=== PATIENT | female | born 1985 | race Caucasian/White ===

== ENCOUNTER 2017-02-27 19:59 | Emergency (ER) | payer OTHER, SELFPAY ==
[2017-02-27] MEDS ORDERED: TYLENOL 325 MG PO ONE (20:29)
[2017-02-27] MEDS ORDERED: TYLENOL 325 MG ONE (20:34)
--- NOTE | 2017-02-27 20:50 | ERPHSYRPT ---
- History of Present Illness Time Seen by Provider: 02/27/17 20:25 Source: patient, family (boyfriend) Patient Subjective Stated Complaint: Pt sts sore throat, body aches, fever, congestion since Monday. Sts has had tonsils out. Sts bad breath. Sts not taken OTC medications in last 6 hours. Pt sts hurts to swallow, does not want to swallow spit. Triage Nursing Assessment: Pt alert, oriented, answers all questions appropriately. Skin p/w/d, resps non-labored. Pt ambulatory to tx room, steady gait noted. Throat appears red. Halitosis noted. Lungs CTA bilat. ABD SNT x 4 quadrants. Muffled voice noted Physician History: CC: sore throat Hx: 31 y/o patient with sore throat for the past 3-4 days. Mild rhinorrhea. No cough. No fever or chills. No rash. She is late on menses but took negative home preg tests. No abd pain. No vomiting. No headache. Symptoms moderate. Severity: moderate Allergies/Adverse Reactions: cetirizine HCl [From Zyrtec] Allergy (Verified 02/27/17 20:23) Swelling of Tongue and Lips montelukast sodium [From Singulair] Allergy (Verified 02/27/17 20:23) Swelling of Tongue and Lips strawberry Allergy (Verified 02/27/17 20:23) Hx Tetanus, Diphtheria Vaccination/Date Given: Yes Hx Influenza Vaccination/Date Given: No Hx Pneumococcal Vaccination/Date Given: No Immunizations Up to Date: Yes - Review of Systems Constitutional: Malaise, No Fever, No Chills Eyes: No Symptoms Ears, Nose, & Throat: Nose Congestion, Throat Pain Respiratory: No Cough Abdominal/Gastrointestinal: No Vomiting, No Diarrhea Skin: No Rash - Past Medical History Pertinent Past Medical History: Yes Neurological History: No Pertinent History ENT History: Other Cardiac History: Arrhythmia Respiratory History: No Pertinent History Endocrine Medical History: No Pertinent History Musculoskeletal History: No Pertinent History GI Medical History: No Pertinent History History: No Pertinent History Psycho-Social History: No Pertinent History Female Reproductive Disorders: No Pertinent History - Past Surgical History Past Surgical History: Yes Neuro Surgical History: No Pertinent History Cardiac: No Pertinent History Respiratory: No Pertinent History Gastrointestinal: No Pertinent History Genitourinary: No Pertinent History Musculoskeletal: Orthopedic Surgery Female Surgical History: No Pertinent History, Other Other Surgical History: RIGHT FOOT, TUBES IN EARS - Social History Smoking Status: Unknown if ever smoked How long have you smoked: 15+ years Exposure to second hand smoke: No Alcohol Use: None Drug Use: none Patient Lives Alone: No Significant Family History: no pertinent family hx - Female History Hx Last Menstrual Period: "end of November" Hx Now: No (unknown, had miscarriage) - Nursing Vital Signs Nursing Vital Signs: Initial Vital Signs Temperature 99.9 F Temperature Source Oral Pulse Rate 108 Respiratory Rate 16 Blood Pressure [Right Arm] 129/77 Pain Intensity 10 - Physical Exam General Appearance: alert Eye Exam: bilateral eye: PERRL, EOMI Ear Exam: bilateral ear: TM normal Throat Exam: moist mucus membranes, pharynx tenderness (red), No tonsillar exudate Neck Exam: normal inspection, non-tender, supple Cardiovascular/Respiratory Exam: regular rate/rhythm Neurologic Exam: alert, oriented x 3 Skin Exam: warm, dry SpO2 Interpretation: normal SpO2: 96 Oxygen Delivery: Room Air - Course Nursing assessment & vital signs reviewed: Yes Ordered Tests: Active Orders 24 hr Category Date Time Status Clean Catch Urine Specimen STAT Care 02/27/17 20:28 Active PO Popsicle STAT Care 02/27/17 20:29 Active HCG,QUALITATIVE URINE Stat Lab 02/27/17 20:30 Completed STREP SCREEN-BETA A Stat Lab 02/27/17 20:35 Completed UA W/ MICROSCOPIC Stat Lab 02/27/17 20:30 Completed Medication Summary Discontinued Medications Generic Name Dose Route Start Last Admin Trade Name Lonnyq PRN Reason Stop Dose Admin Acetaminophen 650 mg 02/27/17 20:29 02/27/17 20:36 Tylenol 325 Mg PO 02/27/17 20:30 650 mg STAT ONE Administration Acetaminophen Confirm 02/27/17 20:34 Tylenol 325 Mg Administered 02/27/17 20:35 Dose 650 mg .ROUTE .STK-MED ONE Lab/Rad Data: Laboratory Results 02/27/17 02/27/17 02/27/17 Range/Units 20:35 20:30 20:30 Ur Collection Type CLEAN CATCH Urine Color DEJAN (YELLOW) Urine Appearance CLEAR (CLEAR) Urine pH 5.5 (5-6) Ur Specific Paia 1.020 (1.005-1.025) Urine Protein 100 (Negative) Urine Glucose (UA) NEGATIVE (NEGATIVE) mg/dL Urine Ketones >=160 (NEGATIVE) Urine Nitrite NEGATIVE (NEGATIVE) Urine Bilirubin SMALL (NEGATIVE) Urine Urobilinogen >=8.0 (0-1) mg/dL Urine WBC (Auto) SMALL (NEGATIVE) Urine RBC (Auto) NEGATIVE (0-5) Arian/ul Urine Microscopic WBC 5-10 (0-5) /HPF Ur Epithelial Cells FEW (FEW) /HPF Urine Bacteria FEW (NEGATIVE) /HPF Urine HCG, Qual NEGATIVE (Negative) Streptococcus Screen POSITIVE (Negative) Specimen Received [id number] - Progress Progress Note: 02/27/17 21:18 HCG neg. Neg glc in urine. Pos strep. She chose po amoxil. Instr given. Counseled pt/family regarding: lab results, diagnosis, need for follow-up - Departure Time of Disposition: 21:18 Departure Disposition: Home Clinical Impression: Strep pharyngitis Condition: Stable Critical Care Time: No Referrals: JOSE MYERS [Primary Care Provider] - Instructions: Strep Throat Additional Instructions: SORE THROAT 1. If you are prescribed antibiotics, you should finish the entire prescription as directed. 2. Many sore throats are caused by viruses and antibiotics will not help. 3. Acetaminophen or Ibuprofen as directed for fever or discomfort. 4. Cool liquids may help the pain of sore throat. Push oral fluids. Off work until fever free for 24 hours- at least one day. Prescriptions: Amoxicillin [Amoxil] 1 cap PO TID #29 capsule
[2017-02-27 21:08] LABS: Collection Type CLEAN CATCH; Ph 5.5 (5-6)
[2017-02-27 21:09] LABS: Bacteria FEW /HPF (NEGATIVE); COMPLETE URINE MICROSCOPIC? YES; Epithelial Cells FEW /HPF (FEW)
[2017-02-27] MEDS ORDERED: AMOXIL 500 MG PO ONE (21:17)
[2017-02-27] MEDS ORDERED: AMOXIL 500 MG ONE (21:21)
[2017-02-27 21:36] VITALS: BP 113/69; PULSE 106; O2SAT 91
== END 2017-02-27 21:49 | disposition home or self-care (01) ==
LOC: ED 19:59
DX: J02.0 Streptococcal pharyngitis (principal); J34.89 Other specified disorders of nose and nasal sinuses
CPT/HCPCS: 81000; 84703; 87430; 99283; A9270-GY

== ENCOUNTER 2020-04-26 21:27 | Emergency (ER) | payer OTHER ==
--- NOTE | 2020-04-26 21:51 | ERPHSYRPT ---
- History of Present Illness Time Seen by Provider: 04/26/20 21:51 Source: patient Exam Limitations: no limitations Physician History: This is a 34-year-old white female who was walking on flat surface and rolled her left ankle and felt a popping sensation. Patient has persistent pain and therefore she wanted her left ankle evaluated radiographically. Method of Injury: twisted Occurred: just prior to arrival Quality: constant, aching Severity of Pain-Max: mild Severity of Pain-Current: mild Lower Extremities Pain: ankle: left Modifying Factors: Improves With: movement Associated Symptoms: popping sensation Allergies/Adverse Reactions: cetirizine HCl [From Zyrtec] Allergy (Verified 04/26/20 22:04) Swelling of Tongue and Lips montelukast sodium [From Singulair] Allergy (Verified 04/26/20 22:04) Swelling of Tongue and Lips strawberry Allergy (Verified 04/26/20 22:04) Hx Tetanus, Diphtheria Vaccination/Date Given: Yes Hx Influenza Vaccination/Date Given: No Hx Pneumococcal Vaccination/Date Given: No Travel Risk - International Travel Have you traveled outside of the country in past 3 weeks: No - Coronavirus Screening Are you exhibiting any of the following symptoms?: No Close contact with a COVID-19 positive Pt in past 14-21 Days: No - Review of Systems Constitutional: No Symptoms Eyes: No Symptoms Ears, Nose, & Throat: No Symptoms Respiratory: No Symptoms Cardiac: No Symptoms Abdominal/Gastrointestinal: No Symptoms Genitourinary Symptoms: No Symptoms Musculoskeletal: Injury (Left ankle) Skin: No Symptoms Neurological: No Symptoms Psychological: No Symptoms Endocrine: No Symptoms Hematologic/Lymphatic: No Symptoms Immunological/Allergic: No Symptoms All Other Systems: Reviewed and Negative - Past Medical History Pertinent Past Medical History: Yes Neurological History: No Pertinent History ENT History: Other Cardiac History: Arrhythmia Respiratory History: No Pertinent History Endocrine Medical History: No Pertinent History Musculoskeletal History: No Pertinent History GI Medical History: No Pertinent History History: No Pertinent History Psycho-Social History: No Pertinent History Female Reproductive Disorders: No Pertinent History Other Medical History: BRADYCARDIA AND OUT OF RHYTHM - Past Surgical History Past Surgical History: Yes Neuro Surgical History: No Pertinent History Cardiac: No Pertinent History Respiratory: No Pertinent History Gastrointestinal: No Pertinent History Genitourinary: No Pertinent History Musculoskeletal: Orthopedic Surgery Female Surgical History: No Pertinent History, Other Other Surgical History: RIGHT FOOT, TUBES IN EARS - Social History Smoking Status: Unknown if ever smoked How long have you smoked: 15+ years Exposure to second hand smoke: No Alcohol Use: None Drug Use: none Patient Lives Alone: No Significant Family History: no pertinent family hx - Nursing Vital Signs Nursing Vital Signs: Initial Vital Signs Temperature 96.7 F 04/26/20 21:54 Pulse Rate 69 04/26/20 21:54 Respiratory Rate 16 04/26/20 21:54 Blood Pressure 122/73 04/26/20 21:54 O2 Sat by Pulse Oximetry 98 04/26/20 21:54 Pain Scale Pain Intensity 9 - Physical Exam General Appearance: no apparent distress, alert, anxiety Eyes, Ears, Nose, Throat Exam: normal ENT inspection, moist mucous membranes Neck Exam: normal inspection, non-tender, supple, full range of motion Cardiovascular/Respiratory Exam: chest non-tender Gastrointestinal/Abdominal Exam: non-tender Back Exam: normal inspection, normal range of motion, No CVA tenderness, No vertebral tenderness Hips Exam: bilateral: non-tender, normal inspection, normal range of motion, no evidence of injury Legs Exam: bilateral leg: non-tender, normal inspection, normal range of motion, no evidence of injury Knees Exam: bilateral knee: non-tender, normal inspection, normal range of motion, no evidence of injury Ankle Exam: right ankle: non-tender, normal inspection, normal range of motion, no evidence of injury, left ankle: soft tissue tenderness Foot Exam: bilateral foot: non-tender, normal inspection, normal range of motion, no evidence of injury Neuro/Tendon Exam: normal sensation, normal motor functions, normal tendon functions Mental Status Exam: alert, oriented x 3, cooperative Skin Exam: normal color, warm, dry SpO2 Interpretation: normal O2 Delivery: Room Air - Course Nursing assessment & vital signs reviewed: Yes Ordered Tests: Active Orders 24 hr Category Date Time Status ANKLE (3 VIEWS) Stat Exams 04/26/20 22:11 Ordered - Progress Progress Note: 04/26/20 22:45 X-ray left ankle reveals no evidence of any acute fracture or dislocation Counseled pt/family regarding: diagnosis, need for follow-up, rad results - Departure Departure Disposition: Home Clinical Impression: Left ankle sprain Condition: Stable Critical Care Time: No Referrals: DOCTOR,NO FAMILY [Primary Care Provider] - [facility]Ortho M-F [id number] Additional Instructions: Wear Bal wrap as needed for comfort. Ice pack to area 3 times a day for the next 48 hours. Use Tylenol and ibuprofen for pain. Follow-up with the [facility] orthopedic clinic for persistent symptoms.
[2020-04-26 23:00] VITALS: BP 116/67; PULSE 85; O2SAT 97
--- NOTE | 2020-04-27 08:52 | XRAY ---
Indication: Pain following trauma. Comparison: February 19, 2010. 3 view left ankle demonstrates mild soft tissue swelling. No other bony, articular, or soft tissue abnormalities.
== END 2020-04-26 22:58 | disposition home or self-care (01) ==
LOC: ED 21:27
DX: S93.402A Sprain of unspecified ligament of left ankle, initial encounter (principal); X50.1XXA Overexertion from prolonged static or awkward postures, initial encounter; Y93.01 Activity, walking, marching and hiking; Y92.9 Unspecified place or not applicable
CPT/HCPCS: 73610; 99283

== ENCOUNTER 2023-03-28 19:13 | Emergency (ER) | payer BC, OTHER ==
[2023-03-28 19:20] VITALS: BP 138/70; PULSE 61; O2SAT 96
--- NOTE | 2023-03-28 19:37 | ERPHSYRPT ---
- History of Present Illness Time Seen by Provider: 03/28/23 19:36 Source: patient, family Exam Limitations: no limitations Patient Subjective Stated Complaint: pt here for pain to left wrist, she states she tripped and fell on a dog crate 2 days ago Triage Nursing Assessment: pt walked in, resp easy, skin w/d/p. has bruising to left wrist , strong radial pulse Physician History: 37-year-old white female who tripped over her dog 2 days ago and complains of left wrist pain. She has no other complaints of pain. Occurred: days ago (2) Method of Injury: fell Quality: constant, aching Severity of Pain-Max: mild Severity of Pain-Current: mild Extremities Pain Location: wrist: left Modifying Factors: Improves With: movement Associated Symptoms: none Allergies/Adverse Reactions: cetirizine HCl [From Zyrtec] Allergy (Verified 03/28/23 19:20) Swelling of Tongue and Lips latex Allergy (Verified 03/28/23 19:20) montelukast sodium [From Singulair] Allergy (Verified 03/28/23 19:20) Swelling of Tongue and Lips strawberry Allergy (Verified 03/28/23 19:20) Home Medications: No Reportable Medications [No Reported Medications] 03/28/23 [History] Hx Tetanus, Diphtheria Vaccination/Date Given: Yes Hx Influenza Vaccination/Date Given: No Hx Pneumococcal Vaccination/Date Given: No Immunizations Up to Date: Yes Travel Risk - International Travel Have you traveled outside of the country in past 3 weeks: No - Coronavirus Screening Are you exhibiting any of the following symptoms?: No Close contact with a COVID-19 positive Pt in past 14-21 Days: No - Vaccine Status Have you recieved a Covid-19 vaccination: No - Review of Systems Constitutional: No Symptoms Eyes: No Symptoms Ears, Nose, & Throat: No Symptoms Respiratory: No Symptoms Cardiac: No Symptoms Abdominal/Gastrointestinal: No Symptoms Genitourinary Symptoms: No Symptoms Musculoskeletal: Fall, Injury Skin: No Symptoms (Left wrist) Neurological: No Symptoms Psychological: No Symptoms Endocrine: No Symptoms Hematologic/Lymphatic: No Symptoms Immunological/Allergic: No Symptoms All Other Systems: Reviewed and Negative - Past Medical History Pertinent Past Medical History: Yes Neurological History: No Pertinent History ENT History: Other Cardiac History: Arrhythmia Respiratory History: No Pertinent History Endocrine Medical History: No Pertinent History Musculoskeletal History: No Pertinent History GI Medical History: No Pertinent History History: No Pertinent History Psycho-Social History: No Pertinent History Female Reproductive Disorders: No Pertinent History Other Medical History: BRADYCARDIA AND OUT OF RHYTHM - Past Surgical History Past Surgical History: Yes Neuro Surgical History: No Pertinent History Cardiac: No Pertinent History Respiratory: No Pertinent History Gastrointestinal: No Pertinent History Genitourinary: No Pertinent History Musculoskeletal: Orthopedic Surgery Female Surgical History: Hysterectomy, Other Other Surgical History: RIGHT FOOT, TUBES IN EARS - Social History Smoking Status: Former smoker How long have you smoked: 15+ years Exposure to second hand smoke: No Alcohol Use: None Drug Use: none Patient Lives Alone: No Significant Family History: no pertinent family hx - Female History Hx Last Menstrual Period: hyster Hx Now: No - Nursing Vital Signs Nursing Vital Signs: Initial Vital Signs Temperature 97.0 F 03/28/23 19:19 Pulse Rate 61 03/28/23 19:19 Respiratory Rate 15 03/28/23 19:19 Blood Pressure 138/70 03/28/23 19:19 O2 Sat by Pulse Oximetry 96 03/28/23 19:19 Pain Scale Pain Intensity 6 - Physical Exam General Appearance: no apparent distress, alert, anxiety Eyes, Ears, Nose, Throat Exam: normal ENT inspection, moist mucous membranes Neck Exam: normal inspection, non-tender, supple, full range of motion Cardiovascular/Respiratory Exam: chest non-tender, no respiratory distress Abdominal Exam: non-tender Back Exam: normal inspection, normal range of motion, No CVA tenderness, No vertebral tenderness Shoulder Exam: normal inspection, non-tender, no evidence of injury, normal ROM Elbow/Forearm Exam: normal inspection, non-tender, no evidence of injury, normal ROM Wrist Exam: normal inspection, no evidence of injury, normal ROM, soft tissue tenderness Hand Exam: normal inspection, non-tender, no evidence of injury, normal ROM Neuro/Tendon Exam: normal sensation, normal motor functions, normal tendon functions, responds to pain, no evidence tendon injury Mental Status Exam: alert, oriented x 3, cooperative Skin Exam: normal color, warm, dry SpO2 Interpretation: normal SpO2: 96 O2 Delivery: Room Air - Course Nursing assessment & vital signs reviewed: Yes Ordered Tests: Active Orders 24 hr Category Date Time Status WRIST (MIN 3 VIEWS) Stat Exams 03/28/23 19:25 Taken - Progress Progress: pain not gone completely, re-examined Progress Note: 03/28/23 19:48 X-ray left wrist interpreted by me. I do not appreciate an acute fracture or dislocation. This patient's medical history is 1 of low complexity. The level of complexity in the work-up performed based on review of the patient's past medical history, review the patient's medication list, review of the patient's drug allergy list, history of present illness and physical findings on examination. The radiographic study of the left wrist x-ray is the work-up performed. Patient will use Tylenol and ibuprofen for pain control. In addition, she can apply ice to the area 3 times a day for the next 48 hours. If her pain persists, she can follow-up at the [facility] orthopedic clinic Monday through Monday 8 AM to 10 AM. It is a walk-in clinic. She does not need to have an appointment. Counseled pt/family regarding: diagnosis, need for follow-up, rad results Medical Desision Making - Diagnostic Testing Radiological Interpretation: Interpreted by me - Risk of complications Low Risk: Low risk of morbidity from additional dx testing or treatment - Departure Departure Disposition: Home Clinical Impression: Left wrist sprain Condition: Stable Critical Care Time: No Referrals: DOCTOR,NO FAMILY [Primary Care Provider] - Follow up/PCP as directed Additional Instructions: Ice pack to left wrist 3 times a day for next 48 hours. Use Tylenol and ibuprofen for pain control. If your pain persist despite these measures, follow-up at [facility] orthopedic clinic Monday through Monday 8 AM to 10 AM. You do not need appointment. Is a walk-in clinic.
--- NOTE | 2023-03-29 08:51 | XRAY ---
Indication: Pain and bruising following fall. Comparison: October 19, 2017 3 view left wrist obtained. No bony, articular, or soft tissue abnormalities.
== END 2023-03-28 20:08 | disposition home or self-care (01) ==
LOC: ED 19:13
DX: S63.502A Unspecified sprain of left wrist, initial encounter (principal); W01.198A Fall on same level from slipping, tripping and stumbling with subsequent striking against other object, initial encounter; Z28.310 Unvaccinated for COVID-19
CPT/HCPCS: 73110; 99283; L3908